=== PATIENT | female | born 1980 | race Caucasian/White ===

== ENCOUNTER 2017-04-28 12:28 | Outpatient (CLI) ==
[2015-04-08 18:29] VITALS: BMI 21.2
[2017-04-28 13:52] LABS: BASOPHILS # (AUTO) 0.1 K/uL (0-0.2); BASOPHILS % (AUTO) 0.6 % (0.0-3.0); EOSINOPHILS # (AUTO) 0.1 K/ul (0.0-0.7); EOSINOPHILS % (AUTO) 1.2 % (0.0-7.0); HEMATOCRIT 39.9 % (37.0-47.0); HEMOGLOBIN 13.5 g/dl (12.0-16.0); IMMATURE GRANULOCYTE % (AUTO) 0.4 % (0.0-5.0); LYMPHOCYTES # (AUTO) 1.9 K/uL (0.60-3.4); LYMPHOCYTES % (AUTO) 21.3 (10.0-50.0); MEAN CORPUSCULAR HEMOGLOBIN 31.1 pg (27.0-31.0); MEAN CORPUSCULAR HGB CONC 33.8 (31.8-35.4); MEAN CORPUSCULAR VOLUME 91.9 fl (81.0-99.0); MONOCYTES # (AUTO) 0.5 K/uL (0.4-2.0); MONOCYTES % (AUTO) 5.4 (0-10); NEUTROPHILS # (AUTO) 6.5 K/ul (2.0-6.9); NEUTROPHILS % (AUTO) 71.1; PLATELET COUNT 247 10^3/uL (140-440); RED BLOOD COUNT 4.34 10^6/ul (4.20-5.40); WHITE BLOOD COUNT 9.09 K/ul (4.6-10.2)
[2017-04-28 14:24] LABS: ALBUMIN 4.1 g/dL (3.4-5.0); ALBUMIN/GLOBULIN RATIO 1.28; ANION GAP 14.9; BILIRUBIN,TOTAL 0.45 mg/dL (0.00-1.20); BUN/CREATININE RATIO 11.11; CHOL/HDL RATIO 2.6 (4.5-5.5); CREATININE 0.81 mg/dL (0.60-1.30); POTASSIUM 3.9 mmol/L (3.5-5.10); TOTAL PROTEIN 7.3 g/dL (6.4-8.2)
== END 2017-04-28 12:29 | disposition home or self-care (01) ==
LOC: LAB 12:28
PROVIDERS: ATTEND Nurse Practitioner Family
DX: Z00.00 Encounter for general adult medical examination without abnormal findings (principal); R41.9 Unspecified symptoms and signs involving cognitive functions and awareness
CPT/HCPCS: 36415; 80053; 80061; 84443; 85025

== ENCOUNTER 2017-05-08 12:05 | Emergency (ER) ==
[2017-05-08 12:10] VITALS: BP 133/88; TEMP 98; BMI 22.8
--- NOTE | 2017-05-08 12:27 | ED.PDOC ---
General ED Provider: Dr. KAYLEY LOPEZ JR Chief Complaint: Bite Stated Complaint: felt soreness to rt axilla--had been landscaping--noted sm [place]--now has spread and become red-pt feels nauseated and feverish at times. [ End ]98.0 79 16 99% 133/88 6/10 RIGHT ARM REDDNESS AND SWELLING Time Seen by Physician: 12:20 Mode of Arrival: Walk-In Information Source: Patient Exam Limitations: No limitations Nursing and Triage Documentation Reviewed and Agree: No Review of Systems - Review Of Systems Constitutional: Reports: Malaise Eyes: Reports: No symptoms Ears, Nose, Mouth, Throat: Reports: No symptoms Respiratory: Reports: No symptoms Cardiac: Reports: No symptoms GI: Reports: No symptoms : Reports: No symptoms Musculoskeletal: Reports: No symptoms Skin: Reports: Lesions (1cm dry oopen area with surrounding raised red tender area no fluctuance no drainage) Neurological: Reports: Anxiety (on clexa- weaning off of ativan) Endocrine: Reports: No symptoms Hematologic/Lymphatic: Reports: No symptoms All Other Systems: Other Past Medical History - Past Medical History Previously Healthy: Yes Endocrine: Reports: None Cardiovascular: Reports: None Respiratory: Reports: None Hematological: Reports: None Gastrointestinal: Reports: None Genitourinary: Reports: None Neuro/Psych: Reports: Depression Musculoskeletal: Reports: None Cancer: Reports: None Last Menstrual Period: now - Surgical History General Surgical History: Reports: Tubal ligation - Family History Family History: Reports: None - Social History Smoking Status: Current every day smoker, Heavy tobacco smoker Hx Substance Use: No Alcohol Screening: Occasionally - Immunizations Tetanus Shot up to Date: No Physical Exam - Physical Exam Appearance: Well-appearing, Thin Pain Distress: Moderate Skin: Warm, Dry, Normal color Critical Care Note - Critical Care Note Total Time (mins): 0 Course - Course Vital Signs: Temp Pulse Resp BP Pulse Ox 05/08/17 12:05 98 F 79 16 133/88 99 Departure - Departure Time of Disposition: 12:30 Disposition: HOME SELF-CARE Discharge Problem: Hx of drainage of abscess, Abscess Instructions: Abscess (ED), Warm Compress or Soak (ED) Condition: Good Pt referred to PMD for follow-up: Yes Additional Instructions: warm soaks three times a day topical agents (antibiotic ointment or desitin ) daily antibiotic until gone(should be resolving in two days) recheck PMD one week sooner fi not resolved discuss history of MRSA in family consider decontamination Prescriptions: Hydrocodone Bit/Acetaminophen [[place] 5-325] 1 - 2 tab PO Q6HR PRN #12 tablet PRN Reason: pain Sulfamethoxazole/Trimethoprim [Bactrim Ds 800/160 mg] 1 tab PO Q12HR #14 tablet Allergies/Adverse Reactions: Allergies No Known Allergies Allergy (Verified 05/08/17 12:12) Home Medications: Ambulatory Orders Citalopram Hydrobromide [Celexa] 10 mg PO DAILY 05/08/17 Hydrocodone Bit/Acetaminophen [[place] 5-325] 1 - 2 tab PO Q6HR PRN #12 tablet Sulfamethoxazole/Trimethoprim [Bactrim Ds 800/160 mg] 1 tab PO Q12HR #14 tablet 05/08/17
== END 2017-05-08 12:42 | disposition home or self-care (01) ==
LOC: ED 12:05
DX: L02.411 Cutaneous abscess of right axilla (principal); F17.210 Nicotine dependence, cigarettes, uncomplicated
CPT/HCPCS: 99282